=== PATIENT | female | born 1985 | race Caucasian/White ===

== ENCOUNTER 2019-08-21 15:09 | Emergency (ER) | payer OTHER ==
[~2019-08-21] VITALS: Ht 157.5 cm; Wt 46.7 kg
--- NOTE | 2019-08-21 15:23 | NUR ---
CAME IN FOR NAUSEA AND VOMITING X 3 DAYS , TAKING ANTIBIOTICS SINCE THURSDAYS FOR KIDNEY INFECTION, TO ER BED 1, HOOKED TO MONITOR, CHANGED TO HOSP GOWN, WARM BLANKET PROVIDED, PATIENT AAO x 4, BREATHING EVEN AND UNLABORED, AWAITING MD BAH.
--- NOTE | 2019-08-21 15:25 | NUR ---
DR JEFFRIES AT BEDSIDE
[2019-08-21] MEDS ORDERED: IV NS 0.9% 1,000 ML BAG IV ONE (15:30)
[2019-08-21] MEDS ORDERED: ONDANSETRON HCL/PF 4 MG/2 ML VIAL IVP ONE (15:30)
[2019-08-21] MEDS ORDERED: ONDANSETRON HCL/PF 4 MG/2 ML VIAL ONE (15:34)
[2019-08-21 15:40] LABS: BASOPHILS # (AUTO) 0.1 /CMM (0.0-0.2); BASOPHILS % (AUTO) 0.5 % (0.0-2.0); HEMATOCRIT 45 % (33-45); HEMOGLOBIN 15.5 g/dL (11.5-14.8); LYMPHOCYTES # (AUTO) 1.8 /CMM (0.8-4.8); LYMPHOCYTES % (AUTO) 18.5 % (20.0-44.0); MEAN CORPUSCULAR HGB CONC 35 g/dl (31.0-36.0); MEAN CORPUSCULAR VOLUME 94 fL (82-100); MONOCYTES # (AUTO) 0.6 /CMM (0.1-1.30); MONOCYTES % (AUTO) 6.4 % (2.0-12.0); NEUTROPHILS # (AUTO) 7.3 /CMM (1.8-8.9); NEUTROPHILS % (AUTO) 74.6 % (43.0-81.0); PLATELET COUNT (AUTO) 304 /CMM (150-450); RED BLOOD CELL COUNT(AUTO) 4.77 MIL/uL (4.0-5.2); WHITE BLOOD COUNT (AUTO) 9.8 K/uL (4.3-11.0)
--- NOTE | 2019-08-21 15:42 | NUR ---
URINE SAMPLE COLLECTED AND SENT TO LAB.
[2019-08-21 15:51] LABS: ALBUMIN 4.8 g/dL (3.4-5.0); BILIRUBIN,DIRECT 0.2 mg/dL (0.0-0.2); BILIRUBIN,TOTAL 1.2 mg/dL (0.2-1.0); CREATININE 0.9 mg/dL (0.6-1.3); TOTAL PROTEIN, SERUM 8.7 g/dL (6.4-8.2)
[2019-08-21 16:19] LABS: POTASSIUM 2.8 mmol/L (3.5-5.1)
--- NOTE | 2019-08-21 16:19 | NUR ---
POTASIUM 2.8 MD AWARE.
[2019-08-21 16:26] LABS: APPEARANCE,URINE Clear (CLEAR); BILIRUBIN,URINE SMALL (NEGATIVE); BLOOD, URINE Moderate Ery/uL (NEGATIVE); COLOR,URINE Yellow (YELLOW); KETONES,URINE >=160 (NEGATIVE); LEUKOCYTE ESTERASE ,URINE Negative (NEGATIVE); NITRITE, URINE Negative (NEGATIVE); PROTEIN,URINE 100 mg/dl (NEGATIVE); UGLUCOSE Negative (NEGATIVE); UROBILINOGEN,URINE 0.2 EU/dL (0.2)
[2019-08-21] MEDS ORDERED: POTASSIUM CL. PREMIX PERIPHER. 50 ML IV SCH ×2 (16:30)
[2019-08-21] MEDS ORDERED: IV NS 0.9% 500 ML BAG IV ONE (16:30)
[2019-08-21] MEDS ORDERED: POTASSIUM CHLORIDE 20 MEQ TAB.PRT.SR PO ONE ×2 (16:30→16:42)
[2019-08-21] MEDS ORDERED: POTASSIUM CL. PREMIX PERIPHER. 50 ML ONE (16:42)
[2019-08-21 16:54] LABS: CALCIUM, SERUM 9.9 mg/dL (8.5-10.1)
[2019-08-21 16:55] LABS: BACTERIA,URINE Few /HPF (None Seen)
[2019-08-21 16:56] LABS: MUCUS,URINE Moderate /LPF (None Seen)
[2019-08-21] MEDS ORDERED: ONDANSETRON HCL/PF 4 MG/2 ML VIAL IV ONE (18:00)
[2019-08-21 18:05] VITALS: BP 137/94
--- NOTE | 2019-08-21 18:05 | NUR ---
IV removed. Catheter intact and site benign. Pressure and 4x4 applied to site. No bleeding noted.Patient discharged to home in stable condition. Written and verbal after care instructions given. Patient verbalizes understanding of instruction.
== END 2019-08-21 18:05 | disposition home or self-care (01) ==
LOC: ER 15:16
DX: R11.2 Nausea with vomiting, unspecified (principal); E87.6 Hypokalemia; E86.0 Dehydration; R10.84 Generalized abdominal pain; Z88.2 Allergy status to sulfonamides
CPT/HCPCS: 36415; 80048; 80076; 81001; 83690; 85025; 87086; 96361; 96365; 96375; 99284; J2405; J3480; J7030 ×2; 81000-TC

== ENCOUNTER 2019-08-23 15:34 | Emergency (ER) | payer OTHER ==
[~2019-08-23] VITALS: Ht 157.5 cm; Wt 46.7 kg
--- NOTE | 2019-08-23 16:05 | NUR ---
BIBS TO ER BED 6. AAOX4. NOT IN RESP DISTRESS. AMBULATORY. CAME IN FOR GENERAL ABDOMINAL PAIN X 6 DAYS. PT ALSO REPORTS THAT HE IS NAUSEOUS AND CANT KEEP FLUIDS DOWN. PT REPORTS THAT SHE STARTED ATB CIPRO ON THURSDAY. MD WAS AT BEDSIDE FOR EVAL.
[2019-08-23] MEDS ORDERED: ONDANSETRON HCL/PF 4 MG/2 ML VIAL ONE (16:12)
[2019-08-23] MEDS ORDERED: MORPHINE SULFATE INJ 2 MG/ML DISP.SYRIN ONE (16:12)
[2019-08-23] MEDS ORDERED: ONDANSETRON HCL/PF 4 MG/2 ML VIAL IVP ONE (16:30)
[2019-08-23] MEDS ORDERED: IV NS 0.9% 1,000 ML BAG IV ONE (16:30)
[2019-08-23] MEDS ORDERED: MORPHINE SULFATE INJ 2 MG/ML DISP.SYRIN IV ONE (16:30)
[2019-08-23 16:36] LABS: BASOPHILS # (AUTO) 0.1 /CMM (0.0-0.2); BASOPHILS % (AUTO) 0.6 % (0.0-2.0); HEMATOCRIT 46 % (33-45); HEMOGLOBIN 15.8 g/dL (11.5-14.8); LYMPHOCYTES # (AUTO) 1.2 /CMM (0.8-4.8); LYMPHOCYTES % (AUTO) 11.5 % (20.0-44.0); MEAN CORPUSCULAR HGB CONC 34 g/dl (31.0-36.0); MEAN CORPUSCULAR VOLUME 93 fL (82-100); MONOCYTES # (AUTO) 0.5 /CMM (0.1-1.30); MONOCYTES % (AUTO) 4.9 % (2.0-12.0); NEUTROPHILS # (AUTO) 8.4 /CMM (1.8-8.9); PLATELET COUNT (AUTO) 270 /CMM (150-450); RED BLOOD CELL COUNT(AUTO) 4.95 MIL/uL (4.0-5.2); WHITE BLOOD COUNT (AUTO) 10.1 K/uL (4.3-11.0)
[2019-08-23 16:47] LABS: CALCIUM, SERUM 9.7 mg/dL (8.5-10.1); CREATININE 0.9 mg/dL (0.6-1.3)
[2019-08-23 16:56] LABS: ALCOHOL, BLOOD < 3 mg/dL (0-0); MAGNESIUM 1.8 mg/dL (1.8-2.4)
[2019-08-23 16:59] LABS: APPEARANCE,URINE Clear (CLEAR); BILIRUBIN,URINE SMALL (NEGATIVE); BLOOD, URINE Moderate Ery/uL (NEGATIVE); COLOR,URINE Yellow (YELLOW); KETONES,URINE >=160 (NEGATIVE); LEUKOCYTE ESTERASE ,URINE Trace (NEGATIVE); NITRITE, URINE Negative (NEGATIVE); PH,URINE 5.5 (5.0-8.0); PROTEIN,URINE 100 mg/dl (NEGATIVE); UGLUCOSE Negative (NEGATIVE); UROBILINOGEN,URINE 0.2 EU/dL (0.2)
[2019-08-23 17:02] LABS: ALBUMIN 4.7 g/dL (3.4-5.0); BILIRUBIN,DIRECT 0.2 mg/dL (0.0-0.2); BILIRUBIN,TOTAL 1.1 mg/dL (0.2-1.0); TOTAL PROTEIN, SERUM 8.3 g/dL (6.4-8.2)
[2019-08-23 17:11] LABS: BACTERIA,URINE Few /HPF (None Seen); SQUAMOUS EPITHELIAL CELL,UR Few /HPF (None Seen)
[2019-08-23] MEDS ORDERED: POTASSIUM CHLORIDE 20 MEQ TAB.PRT.SR PO ONE ×2 (19:00→19:03)
[2019-08-23] MEDS ORDERED: IV NS 0.9% 1,000 ML IV ONE (19:00)
[2019-08-23] MEDS ORDERED: IBUPROFEN 600 MG TABLET PO ONE ×2 (19:58→20:30)
--- NOTE | 2019-08-23 20:00 | NUR ---
PT COMPLAINED OF HAVING PAIN AGAIN. MD MADE AWARE. VERBAL ORDER RECEIVED TO GIVE A DOSE OF IBUPROHEN 600MG PO X 1 DOSE. NOTED AND CARRIED OUT.
--- NOTE | 2019-08-23 20:22 | NUR ---
Patient discharged to home in stable condition. Written and verbal after care instructions given. Patient verbalizes understanding of instruction.IV removed. Catheter intact and site benign. Pressure and 4x4 applied to site. No bleeding noted. Pt ambulatory with a steady gait
[2019-08-23 20:23] VITALS: BP 153/85
== END 2019-08-23 20:23 | disposition home or self-care (01) ==
LOC: ER 15:34
DX: N23 Unspecified renal colic (principal); E86.0 Dehydration; E87.6 Hypokalemia; K76.0 Fatty (change of) liver, not elsewhere classified; F32.9 Major depressive disorder, single episode, unspecified; Z88.2 Allergy status to sulfonamides
CPT/HCPCS: 36415; 74176; 80048; 80076; 80307; 81001; 83690; 83735; 84702; 85025; 96361; 96374; 96375; 99284; J2270; J2405; J7030 ×2; 81000-TC; G0480